=== PATIENT | male | born 1990 | race Caucasian/White ===

== ENCOUNTER 2016-11-09 11:20 | Inpatient (IN) | payer OTHER, MEDICAID ==
[~2016-11-09] VITALS: Ht 180.3 cm; Wt 118.4 kg
[2016-11-09] VITALS (9 sets, daily range): BP systolic 111–145; BP diastolic 57–81; PULSE 92–119; RESP 12–18; O2SAT 92–98
--- NOTE | 2016-11-09 11:34 | ED.REPORT ---
HPI-Rash / Abscess Date of Service November 09, 2016 ED Provider: Alexandro Hutchison MD 26 y/o male with a hx of insulin dependent DM and renal insufficiency presents to the ED due to a painful abscess on the abdomen, onset 10 days ago. The pt was sent to the ED by Dr. Kelly. He states the abscess started out as a small lump, similar to an insect bite and has progressively increased in size. He has not been able to sleep due to the pain from the abscess.The pt is currently taking Bactrim, but his sx have not improved. He denies fever, diaphoresis and chills. He recorded his blood sugar at 165 last. The pt also has a pressure ulcer on his left stump. He states it is not painful. Nursing Notes Stated Complaint: ABSCESS ON STOMACH Chief Complaint: Skin Rash/Abscess Nursing Notes Reviewed: Yes (Bday not reconciled - on Bactrim) Allergies: Uncoded Allergies: FENTENYL (Allergy, Intermediate, Rash, 11/09/16) NKDA (Allergy, Unknown, 04/02/03) Scheduled Amlodipine (Amlodipine) 5 Mg Tablet 5 MG PO DAILY Atorvastatin Calcium (Atorvastatin Calcium) 20 Mg Tablet 20 MG PO DAILY Citalopram (Citalopram) 40 Mg Tablet 40 MG PO DAILY Gabapentin (Gabapentin) 600 Mg Tablet 600 MG PO TID Hydrochlorothiazide (Hydrochlorothiazide) 25 Mg Tablet 25 MG PO DAILY Insulin Glargine (Lantus U100 Insulin Vial) 100 Unit/Ml Vial 35 UNITS SUBQ QAM Insulin Glargine (Lantus U100 Insulin Vial) 100 Unit/Ml Vial 40 UNITS SUBQ HS Insulin Glulisine (Apidra U100 Insulin Vial) 100 Unit/1 Ml Vial 10 UNITS SUBQ TIDAC Lisinopril (Lisinopril) 40 Mg Tablet 40 MG PO DAILY Scheduled PRN Ibuprofen (Ibuprofen) 400 Mg Tablet 400-800 MG PO DAILY PRN PRN For Pain Insulin Glulisine (Apidra U100 Insulin Vial) 100 Unit/1 Ml Vial SUBQ ACHS PRN PRN sliding scale insulin oxyCODONE-Acetaminophen 5-325 mg (oxyCODONE-Acetaminophen 5-325 mg) 1 Each Tablet 1-2 EACH PO Q4H PRN PRN For Pain General Time Seen by MD: 11:32 Chief Complaint Abscess Hx Obtained From: Patient Arrived By: Walk-in Onset Occurred: More than a week ago... (2 weeks) Symptom Duration: Since onset Location: : Abdomen (Abscess on the abdomen) Quality: Painful Severity: Current: Mild Severity: Maximum: Mild Recent Healthcare: Recent doctor visit Similar Sx Previous: No Past Medical History Past Medical History Renal insufficiency (stage 3 as of 10/2016) Diabetes, insulin-dependent Hyperlipidemia Peripheral vascular disease Past Surgical History Bilateral lower extremity amputation secondary to diabetes Smoking History Never Smoker Social History Alcohol Use: Denies alcohol use Ambulatory Status Independent (Bilateral lower extremities amputated. ) Review of Systems Reports: Abscess on the abdomen Constitutional: Denies: Chills, Fever Skin: Denies Diaphoresis Complete sys rev & neg: except as marked. Physical Exam Initial Vital Signs Vital Signs (First) Date Time Temp Pulse Resp B/P Pulse Ox O2 Delivery O2 Flow Rate FiO2 11/09/16 11:31 37.2 105 14 132/74 97 Room Air Initial VS: Reviewed, Unavailable (none on chart, ordered), Vital signs abnormal (heart rate 105) Head / Eyes: Atraumatic, Normocephalic, PERRL Neck: Supple, Non-tender, Full range of motion Respiratory: Breath sounds normal, Clear to auscultation, No respiratory distress Abdomen / GI: Soft, Non-tender, No guarding, No rebound, No distention Neurologic: Alert, Oriented, Nonfocal General/Constitutional: Awake, Alert, Cooperative, Not toxic appearing Concerning smell to the room. Overtly appears in shane sepsis. Skin: Warm, Dry, Intact Cellulitis and cutaneous abscess with some enduration on left upper quadrant of the abdomen. Cardiovascular: Regular rhythm, Heart sounds NL, No gallop, No murmurs, No rubs Heart Rate / Rhythm: Positive: Tachycardia (Mild) Upper Extremity / MS: Atraumatic, Full range of motion, No deformity, Neurologic intact, Vascular intact Lower Extremity / Pelvis / MS: No erythema, Neurologic intact, Vascular intact Bilateral lower extremity amputations. Ulcer on right stump with no clinical sign of infection. Interpretation & Diagnostics Lab Results Interpretation Result Diagram: 11/09/16 1230 11/09/16 1230 Test 11/09/16 12:30 White Blood Count 9.5th/mm3 (3.8-10.1) Red Blood Count 4.12mil/mm3 (4.40-5.80) Hemoglobin 12.0g/dL (13.8-17.2) Hematocrit 35.3% (41.0-50.0) Mean Corpuscular Volume 85.7fL (81-100) Mean Corpuscular Hemoglobin 29.1pg (27.0-35.0) Mean Corpuscular Hemoglobin Concent 34.0% (32.0-37.0) Red Cell Distribution Width 11.8% (12.3-15.4) Platelet Count 328bil/L (150-400) Neutrophils (%) (Auto) 72.4% (40-74) Lymphocytes (%) (Auto) 19.0% (14-46) Monocytes (%) (Auto) 6.5% (4-12) Eosinophils (%) (Auto) 1.7% (0-5) Basophils (%) (Auto) 0.2% (0-3) Sodium Level 132mEq/L (134-144) Potassium Level 6.8mEq/L (3.5-5.2) Chloride Level 99mEq/L (97-108) Carbon Dioxide Level 19mmol/L (18-29) Blood Urea Nitrogen 72mg/dL (6-20) Creatinine 4.54mg/dL (0.76-1.27) Estimat Glomerular Filtration Rate 17mL/min (>59) Glucose Level 212mg/dL (60-99) Lactic Acid Level 0.9mmol/L (0.4-2.0) Calcium Level 8.8mg/dL (8.5-10.1) Total Bilirubin < 0.2mg/dL (0.0-1.2) Aspartate Amino Transf (AST/SGOT) 15U/L (0-50) Alanine Aminotransferase (ALT/SGPT) 17U/L (0-44) Alkaline Phosphatase 97U/L (25-150) Total Protein 7.2g/dL (6.4-8.4) Albumin 2.9g/dL (3.4-5.0) Lab Results Interpretation: CBC normal CMP is significant hyperkalemia, worsening renal insufficiency Blood cultures 2 pending Abscess culture from abdominal wound pending Lactic acid normal ECG Interpretation ECG Interpretation: Normal sinus rhythm. Rate 88 No QRS widening May be marginal T peak waves or may be normal for his age No definitive findings for hyperkalemia Time: 13:36 Interpreted by: ED physician Procedures Incision & Drainage Abscess Time: 13:05 Procedure Performed by: ED physician Consent / Setup / Site Prep: Informed consent provided, Consent from patient , Time-out performed, Hand hygiene observed, Stand sterile technique Location of Abscess: Abdomen Skin Preparation Agent: Betadine Local Anesthesia: Bupivacaine 0.5% (with epi) Procedural Sedation/Analgesia: Analgesia: Dilaudid Incised Abscess with Scalpel: #11 Pus Drained: Medium, Bloody Irrigation: Copious Post-Procedure / Complications: Culture obtained, Dressing applied, No complications, Condition improved, Tolerated procedure well, Patient stable Re-Eval/Medical Decision Med Decision/Clinical Course This is a 26-year-old male type I diabetic who is artery undergone bilateral lower extremity amputations, has chronic renal insufficiency, developed worsening abscess and cellulitis of the abdominal wall that has been developing in recent days the past 2 weeks. Last week he was started on Bactrim, but he was seen today in follow-up at the nephrology clinic and noted to have worsening abscess and cellulitis of the sent into the ED. He denies fevers or chills. On exam he does have a cutaneous abscess with surrounding cellulitis sitting about 10 cm across the upper abdomen. He has a decubitus type blister that does not appear infected on his left stump prosthesis but the patient does not appear toxic or acutely ill. I had received a phone call from Dr. Kelly. I discussed the case with surgeries in [facility] performing incision and drainage. This was done at the bedside with bupivacaine with epinephrine, a large incision was made with a large amount of purulent material obtained. The abscess cavity was irrigated, and the actual overall amount of surrounding erythema already markedly improved following drainage-the original area was outlined with a skin pen prior to procedure performance. I strongly suspect cutaneous MRSA as the likely etiology. As also notable for hyperkalemia-presumably a combination of Bactrim plus renal insufficiency and KASEY inhibitor. The medications be held. Patient has no clear , definitive EKG findings-you can make an ibuprofen for some T-wave peaking, but I suspect that is actually normal for the patient this age. The patient received sodium bicarbonate, albuterol, Kayexalate, insulin, and dextrose per hospital hyperkalemia protocol. Dr. Kelly the marketing and communications officer requested vancomycin be ordered and has a preference for daptomycin. Nam Shah of infectious disease consulted at their request, and agrees-and requested the loading dose of 750 mg of daptomycin for today which is been ordered. Allergies be consulted as well the case discussed. And the patient's be admitted to the hospitalist service for continued management. Wound care consultation will be obtained during the patient's hospitalization, and is been ordered. Source of Hx: Old records Re-Evaluation/Progress : Time of Eval: 13:13 Patient Status: Condition improved Re-Evaluation/Progress Note: Pt rechecked. Discussed lab, imaging results and plan to admit. Pt understands and agrees with the plan for admission. All questions addressed. Consultation #1: Referral / Consult Name: Patrick Alvarado MD Consulted With: Nephrology Call Returned at: 13:35 Supervisor Prepress: Will see patient, Agrees with eval, Agrees with plan Consultation #2: Referral / Consult Name: Noé Sosa MD Consulted With: Hospitalist Call Returned at: 13:38 Supervisor Prepress: Will see patient, Agrees with eval, Agrees with plan, Accepts admit Consultation #3: Referral / Consult Name: Nam Shah MD Call Returned at: 13:42 Supervisor Prepress: Will see patient, Agrees with eval, Agrees with plan Note: Recommended giving 750 mg Daptomycin. Differential Diagnosis: Positive: Abscess, Cellulitis, MRSA, Skin abscess, Negative: Anthrax, cutaneous, Gangrene, Henoch-Schonlein purpura, Herpes zoster, Herpes zoster/simplex, Tinea capitas, corporis, Urticaria, Varicella Counseled Regarding: Diagnosis, Lab results, Need for admission Discharge & Departure Impression: Primary Impression: Abscess Additional Impressions: Hyperkalemia Renal insufficiency Disposition: ADMITTED TO HOSPITAL Discharge Condition All VS Reviewed: Yes Referrals: Nam Kelly DO (PCP) Scribnils Attestation Portions of this note were transcribed by Loc Garnica. I, , personally performed the history, physical exam and medical decision-making;I reviewed and confirmed the accuracy of the information in the transcribed note. Signed by Nydia Hardy. 11/09/16 1350 copies to: Nam Kelly Matthew F MD November 09, 2016 11:34 Loc Garnica November 09, 2016 11:47
[2016-11-09] MEDS ORDERED: Ondansetron 2 mg/mL 2 mL Inj IVPUSH ONE (11:45)
[2016-11-09 12:50] LABS: BASOPHILS % (AUTO) 0.2 % (0-3); EOSINOPHILS % (AUTO) 1.7 % (0-5); MONOCYTES % (AUTO) 6.5 % (4-12); Mean Corpuscular Hemoglobin 29.1 pg (27.0-35.0); Mean Corpuscular Volume 85.7 fL (81-100); NEUTROPHILS % (AUTO) 72.4 % (40-74); Platelet Count 328 bil/L (150-400)
[2016-11-09] MEDS: HYDROmorphone 1 mg/mL Inj IVPUSH PRN ×3 (12:50→14:44)
[2016-11-09] MEDS ORDERED: Sodium Polystyrene Sulfonate 0.25 Gm/mL 500 mL Suspension PO ONE (13:25)
[2016-11-09] MEDS ORDERED: Insulin Human REGular-Omnicell 100 Unit/mL IV ONE (13:25)
[2016-11-09] MEDS ORDERED: Sodium Bicarb (50 mEq) 8.4% 1 mEq/mL 50 mL Syringe IVPUSH ONE (13:25)
[2016-11-09] MEDS ORDERED: Albuterol 0.5% (5mg/mL) 20 mL Inhalation Solution NEB ONE (13:25)
[2016-11-09] MEDS ORDERED: CITA40TA13 PO (13:40)
[2016-11-09] MEDS ORDERED: INSU100V7 SUBQ ×2 (13:40)
[2016-11-09] MEDS ORDERED: GABA600T2 PO (13:40)
[2016-11-09] MEDS ORDERED: INSU100V2 SUBQ ×2 (13:40)
[2016-11-09] MEDS ORDERED: LISI40TA PO (13:40)
[2016-11-09] MEDS ORDERED: 0.9% Sodium Chloride 500 ML IV ONE (13:40)
[2016-11-09] MEDS ORDERED: OXYC1TAB24 PO (13:40)
[2016-11-09] MEDS ORDERED: IBUP400T22 PO (13:40)
[2016-11-09] MEDS ORDERED: ATOR20TA65 PO (13:40)
[2016-11-09] MEDS ORDERED: AMLO5TAB2 PO (13:40)
[2016-11-09] MEDS ORDERED: HYDR25TA4 PO (13:40)
[2016-11-09] MEDS ORDERED: Dextrose 10% 250 ML IV ONE (13:45)
[2016-11-09] MEDS ORDERED: DAPTOmycin Inj 750 MG in 0.9% Sodium Chloride 50 ML IV ONE (13:45)
[2016-11-09] MEDS ORDERED: Polyethylene Glycol (PEG) 17 Gm Powder PO PRN (13:45)
[2016-11-09] MEDS ORDERED: Alum-Mag Hydrox-Simeth 30 mL Suspension PO PRN (13:45)
[2016-11-09] MEDS ORDERED: Ondansetron 2 mg/mL 2 mL Inj IVPUSH PRN (13:45)
--- NOTE | 2016-11-09 15:10 | PCM.HPMED ---
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 He was seeing Dr. Kelly today for a routine follow up and showed him a developing abscess on his abdomen that was worsening over the last few days. He first noticed the abscess about two weeks ago. The patient was seen by his PCP, Yohana Michele, who prescribed him Bactrim as treatment for his cellulitis. The patient has taken 4 days worth of treatment but has noted worsening of his wound. The case was discussed with Dr. Kelly who noted that the wound smelled foul when he examined it. The patient denies any fevers, chills, worsening abdominal pain, nausea, vomiting, diarrhea , palpitations. He also has a wound on his left stump that is not painful. The patient has had wounds there before from his prosthetic. His baseline Cr is around 3 but he is noted to have significant proteinuria with 10.9 g of protein per day. In the ED his vitas were stable. An I and D was performed by Dr. Hutchison with what appeared to be purulent material that appeared serosanguineous in the canister when the patient was examined. He was given one dose of Daptomycin. His potassium was noted to be 6.8 without significant peaked T waves. The patient was treated with 20 mg of albuterol, Insulin, Kayexalate and sodium bicarbonate. Dr. Jones from nephrology and Dr. Shah from infectious disease have been contacted by the ED physician and agree to see the patient. Review of Systems: A comprehensive review of systems was conducted with the patient and found to be negative except as above in the History of Present Illness. Allergies Coded Allergies: fentanyl (Unverified Allergy, Unknown, 11/09/16) Uncoded Allergies: FENTENYL (Allergy, Intermediate, Rash, 11/09/16) Home Medications Stanford Wilcox [id number] 1990 11/09/2016 10:40 AM 06/30 Medications Start Date Medication Directions Stop Date 09/20/2016 amlodipine 5 mg tablet take 1 tablet by oral route every day 10/25/2016 Apidra 100 unit/mL subcutaneous solution inject 10U by subcutaneous route per sliding scale before meals and at bedtime 09/20/2016 atorvastatin 20 mg tablet take 1 tablet by oral route every day blood-glucose meter use to test BS 4 times daily 09/20/2016 citalopram 40 mg tablet take 1 tablet by oral route every day 09/20/2016 gabapentin 600 mg tablet take 1 tablet by oral route 3 times every day 09/20/2016 hydrochlorothiazide 25 mg tablet take 1 tablet by oral route every day 09/21/2016 Lancets,Ultra Thin test 4 times a day 09/20/2016 Lantus 100 unit/mL subcutaneous solution inject 40U by subcutaneous route every evening 09/20/2016 lisinopril 40 mg tablet take 1 tablet by oral route every day multivitamin tablet take 1 tablet by oral route every day with food pantoprazole 40 mg tablet,delayed release take 1 tablet by oral route every day 09/21/2016 Pen Needle 30 gauge x 5/16" use to inject lantus 2 times daily and novolog 3 times daily Percocet 5 mg-325 mg tablet take 1 to 2 tablet by oral route every 4 hours as needed 11/03/2016 sulfamethoxazole 800 mg-trimethoprim 160 mg tablet take 1 tablet by oral route every 12 hours 10/04/2016 True Metrix Glucose Test Strip Use 1 Strip by External route 4 times every day to check blood sugars Tylenol Arthritis Pain 650 mg tablet,extended release take 1 tablet by oral route every 6 hours as needed swallowing whole with water. Do not break, crush , dissolve and/or chew. PMH Type 1 diabetes, followed by Dr. Raghavendra SALGADO (stage 3b as of 10/2016) Hyperlipidemia Peripheral vascular disease Surgical History Bilateral lower extremity amputation secondary to diabetic ulcers and osteomyelitis Family History Father and grandparents have diabetes. Social History Hx Alcohol Use: No Hx Substance Use: No Smoking Status: Never Smoker Exam Vital Signs Vital Sign - Last Date Time Temp Pulse Resp B/P Pulse Ox O2 Delivery O2 Flow Rate FiO2 11/09/16 14:34 99 16 120/57 98 Room Air 11/09/16 11:31 37.2 Exam General: No acute distress, well-developed, well-nourished, appropriately interactive HEENT: Normocephalic, atraumatic. External ears without defect. Pupils equal, round, and reactive to light and accommodation. Anicteric sclerae, moist conjunctivae, and no lid lag. Oropharynx free of erythema and cobble stoning with moist mucosa. Neck: Supple with full range of motion. No jugular venous distension. No bruits. No lymphadenopathy or thyromegaly. Cardiovascular: Regular rhythm, tachycardic with no murmurs, rubs, or gallops appreciated Pulmonary: Clear to auscultation bilaterally with no crackles, wheezes, or rhonchi. Normal respiratory effort with no use of accessory muscles. Abdomen: Bowel tones present. Soft, nontender, nondistended. No hepatosplenomegaly or masses appreciated. About 10 cm wound on left mid abdomen with dressing over it and circumscribed by the ED physician. Extremities: Bilateral BKA. Left stump with about a 5 cm ulcer without drainage and with some granulation tissue over it. Skin: Normal temperature, turgor, and texture. Folliculitis on the abdomen around the noted wound. Neurological: Cranial nerves grossly intact. Normal muscle strength, tone, and bulk. Reduced Psychiatric: Normal mood and affect. Alert and oriented to person, place, and time. 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 He was seeing Dr. Kelly today for a routine follow up and showed him a developing abscess on his abdomen that was worsening over the last few days. Abdominal abscess, appearing superficial, in a poorly controlled diabetic -Patient does not appear toxic, however given his severe diabetes will be aggressive with treatment. -Non contrast CT abdomen/pelvis ordered -Blood cultures pending -Given one dose of Daptomycin. Will add Zosyn for pseudomonas coverage. Gram positive cocci on gram stain suggestive of staph as the likely pathogen. -Infectious disease consulted. Will follow recommendations. Acute kidney injury secondary to presumed acute interstitial nephritis secondary to Bactrim in a patient with chronic kidney disease secondary to diabetes -Patient's baseline Cr around 3. Stop Bactrim -Nephrology consulted, will follow recommendations. -Hold lisinopril Hyperkalemia secondary to CALEB -Patient already given Kayexalate, Insulin, Albuterol and sodium bicarb -BMP Q6H and continue to treat medically Uncontrolled type 1 diabetes -Patient is on 35 units of Lantus in the AM and 40 units in the PM with 10 units of short acting meal time insulin and sliding correctional scale as well -Will decrease Lantus to 30 units BID with 10 units of meal time Lispro and high dose correctional insulin Bilateral BKA with left sided wound -Wound care consultation -Antibiotics as above Depression -Hold citalopram until antibiotic is selected by Dr. Shah. Neuropathy -Hold gabapentin, if patient complains of neuropathic pain, renally adjust dose. Hyperlipidemia -Continue statin Hypertension -Continue HCZT and amlodipine, hold lisinopril CODE STATUS: FULL CODE Patient is admitted under inpatient status with expected length of stay greater than 2 midnights due to severity of presenting symptoms, risk of adverse event, and complexity of treatment plan. VTE Prophylaxis: Sub-Q Heparin (Unfractionated) Resuscitation Status: CPR: Attempt Resuscitation Time spent 60 min Attending Statement Patient seen and examined with housestaff. Agree with all attached documentation. Christianne Hernandez DO November 09, 2016 15:10 Noé Sosa MD November 10, 2016 08:05
[2016-11-09] MEDS ORDERED: MetoCLOpramide 5 mg/mL 2 mL Inj IVPUSH PRN (16:15)
[2016-11-09] MEDS ORDERED: Piperacillin-Tazo 3.375 Gm Inj 3.375 GM in Dextrose 5% Minibag Plus 50 ML IV ONE (17:00)
[2016-11-09] MEDS ORDERED: Glucose 40% Oral Gel 15 Gm Tube PO PRN (17:15)
[2016-11-09] MEDS ORDERED: Dextrose 10% 500 ML IV PRN (17:15)
--- NOTE | 2016-11-09 17:40 | NUR ---
Wound Care Wound orders received patient seen at bedside. 26 yo diabetic male with kiran Below Knee Amputations (BKA), admitted with abdominal abscess. Wound at abdomen is 3 cm x 0.5 cm x 1 cm deep, there is no tunneling or undermining, erythema is receding wound is stable Recommend pack this with the edge of a saline moist 2x2 gauze, cover with dry gauze and tape in place, change daily. Wound at left BKA is 3 cm x 2 cm x 0'3 cm, covered with a fibrin base and periwound is calloused heavily, this was debrided of hyperkeratotic skin and dressed with a mepilex adhesive gauze dressing. wound to recheck on this dressing in am. Abdominal wound is likely due to an infected hair follicle and appears to be adequately drained and stable, should heal quickly. Left BKA ulcer due to poorly fitting prosthesis, will contact [facility] to have them adjust.
[2016-11-09] MEDS: Insulin LISPRO 300 Unit/3 mL Inj SUBQ SCH ×2 (17:52→22:18)
--- NOTE | 2016-11-09 18:00 | NUR ---
Arrived, Hyperglycemia, Multidisciplinary Communication 151 - He arrived and was settled into his room. Was complaining of nausea and then started vomiting. Gave 4mg of IV Zofran which seemed to help some, but didn't last long. 155 - Called Jordan from Wound Care and notified him that the patient had a wound care consult. He said he would either be in today or tomorrow to evaluate him. He came this evening and changed his dressings. Called CT and spoke to Mohit notifying him that he was settled in his room and was able to go to CT now. They came up and to give him contrast. 161 - Spoke to Dr. Sosa as he was having nausea and vomiting again when trying to drink the contrast. He said he would order some Reglan. 162 - The Reglan was ordered. Called Katey from Pharmacy and she said she'd get it acknowledged. 1701 - He was asking for a diet order. Paged Dr. Sosa and a diet was ordered. 1712 - Took his blood glucose which was 397. Spoke to Dr. Hernandez and she said she'd order some insulin. Talked to Pharmacy and they said they'd acknowledge it and send it up as soon as possible. 1751 - The insulin arrived and it was given. 1807 - He left via transporter in his bed to get the CT scan completed. Notified Commercial Center Manager. Addendum: 11/09/16 at 1826 by DANDRE HARRINGTON RN 1816 - She returned from the CT scan to [facility] 2022 and was settled back into the room. Commercial Center Manager notified. Care continues.
--- NOTE | 2016-11-09 19:10 | DRSVH ---
PROCEDURE: CT ABDOMEN AND PELVIS WITHOUT CONTRAST ([id number]) INDICATIONS: abcess, immunocompromised TECHNIQUE: After the administration of oral contrast, 5 mm thick sections acquired from the diaphragms to the sy mphysis. 5 mm coronal and sagittal reformats were performed. For radiation dose reduction, the foll owing was used: automated exposure control, adjustment of mA and/or kV according to patient size. COMPARISON: [facility], CT, SOFT TISSUE NECK W CONTRAST, 01/07/2012, 15:25. FINDINGS: Image quality: Excellent. ABDOMEN: Lung bases: Lung bases are clear. Heart size is normal. Solid organs: Liver and spleen are normal in size. Gallbladder is present. Pancreas is normal in s ize. No adrenal nodules. Both kidneys are normal in size, without hydronephrosis or nephrolithiasis . Peritoneum and bowel: Bowel loops demonstrate normal wall thickness and caliber. No free fluid or a ir. Nodes and vessels: No retroperitoneal or mesenteric adenopathy by size criteria. Aorta and inferior vena cava are normal in size. Miscellaneous: No ventral hernias. PELVIS: Genitourinary: The bladder is distended. Miscellaneous: There is induration, skin thickening, and a tiny locule of subcutaneous gas in the ant erior left paracentral subcutaneous tissues of the anterior abdominal wall (se 2 im 31). Bones: No suspicious bony lesions. No vertebral body compression fractures. IMPRESSION: 1. Inflammation or infection in the subcutaneous tissues of the left paracentral anterior abdominal w all with a tiny locule of gas. No drainable fluid collections. 2. The bladder is significantly distended. Consider correlation with catheterization. Dictated by: Eugenio Lombardi M.D. on 11/09/2016 at 18:57 Approved by: Eugenio Lombardi M.D. on 11/09/2016 at 19:04
[2016-11-09] MEDS ORDERED: Insulin GLARgine 100 Unit/mL Syringe SUBQ SCH (22:00)
--- NOTE | 2016-11-09 22:55 | CONS ---
[address] [address] CONSULTATION REPORT PATIENT: ABDI LUCAS : 1990 MR#: [id number] ADMIT: 11/09/2016 JOB ID: [id number] DATE OF SERVICE: 11/09/2016 REQUESTING PHYSICIAN: Noé Sosa MD REASON FOR CONSULTATION: Management of hyperkalemia and chronic kidney disease. CHIEF COMPLAINT: Abdominal wall abscess. PRESENT ILLNESS: This is a 26-year-old, male with history of insulin-dependent diabetes, chronic kidney disease stage 3, bilateral BKA, depression, and obesity who presented to the emergency department for abdominal wall abscess management. Apparently, the patient noticed a small bump on the abdominal wall roughly two weeks ago. The patient was seen by a provider on November 03, 2016. He was prescribed Bactrim. The patient has been on this antibiotics for six days. He came [facility] this morning and was evaluated by Dr. Kelly. It seems like the skin infection had gotten worse and turned into an abscess. The patient was sent directly to our emergency department for further investigation. I and D bedside was performed by ED physician. Blood culture was sent. Patient denies history of fever or chills. No nausea, vomiting. No diarrhea. Initial BMP showed a sodium of 132, potassium of 6.8, chloride 99, bicarb 19, BUN of 72, creatinine of 4.54. Per record, his serum creatinine had ranged between 2.5-3. Urine protein creatinine ratio was 10,929 mg/kg. The patient reported taking NSAIDs as needed for pain. Over the past week or so, he has not taken any. The patient reported that he was diagnosed with type 2 diabetes when he was 17. However, per our record, the patient was evaluated by Dr. Castle, bench press operator and was diagnosed with type 1 diabetes. The patient had history of very poor compliance to the medication and diet. He has history of diabetic nephropathy and retinopathy. He had history of chronic lower extremity infection and, unfortunately, he underwent left lower knee amputation in December 2013 and, later on, had a right below-knee amputation in January 2015. The patient received medications treating for hyperkalemia including insulin, D50, calcium gluconate, Kayexalate and albuterol in ED. PAST MEDICAL HISTORY: 1. 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 2. Depression. 3. Hypertension. 4. Obesity. 5. Dyslipidemia. PAST SURGICAL HISTORY: Status post bilateral below-knee amputation. FAMILY HISTORY: Positive for diabetes in the family. SOCIAL HISTORY: Denies current use of alcohol, tobacco. He sometimes uses marijuana. ALLERGIES: FENTANYL REVIEW OF SYSTEMS: Constitutional: No fever, no chills. HEENT: No headaches. No blurred vision. Cardiovascular: No chest pain or shortness of breath. Pulmonary: No cough, no hemoptysis. GI: No nausea, vomiting, no diarrhea. : Good urine output. No dysuria. No hematuria. Skin as per HPI. The patient also has multiple excoriations on the upper extremities. Hematology: No active bleeding, no bruises. Neuro: Positive for peripheral neuropathy. Next neuro no neurological deficit. PHYSICAL EXAMINATION: Vitals: Temperature 37.0, pulse 117, respiratory 18, blood pressure 111/62. General appearance: Awake, alert x3. No acute distress. HEENT: No pallor. No jaundice. No JVD. No lymphadenopathy. No thyroid enlargement. Heart: Regular rate, rhythm. Normal S1, S2. No murmurs, rubs, or gallops. Lungs: Clear to auscultation bilaterally. Abdomen was soft, obese, active bowel sounds. Extremities: No edema, cyanosis or clubbing of fingers status post bilateral below-knee amputation. Skin: Multiple excoriations on the upper extremities. Dressing placed on the mid abdomen. ASSESSMENT: 1. Acute kidney injury likely related to medication-induced ATN/AIN including lisinopril and Bactrim. 2. Hyperkalemia secondary to renal insufficiency, medications and possibly renal tubular acidosis, type 4. 3. 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 4. 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 5. Skin soft tissue infection, abdominal abscess, status post incision and drainage. 6. Hypertension with hypertensive nephrosclerosis. 7. Depression. PLAN: 1. I have agreed with the ED physician to start with medical management for hyperkalemia. Will repeat a BMP 4 to 6 hours after the treatment. 2. Hold lisinopril and discontinue Bactrim. 3. If he fails medical management for hyperkalemia, we will consider renal replacement therapy. 4. Continue IV broad-spectrum antibiotics. 5. Perform septic workup, blood culture and wound culture. 6. Renal sonogram, UA, urine PCR, urine eosinophils. Thank you for allowing me to participate in the care of your patient. We will monitor along with you. JESSICAD
[2016-11-10] VITALS (9 sets, daily range): BP systolic 114–149; BP diastolic 65–80; PULSE 84–99; RESP 16–18; O2SAT 95–98
[2016-11-10] MEDS: Heparin 5,000 Unit/mL Inj SUBQ SCH ×3 (01:11→17:23)
[2016-11-10] MEDS: Insulin LISPRO 300 Unit/3 mL Inj SUBQ SCH ×6 (01:35→22:00)
[2016-11-10 03:32] LABS: BASOPHILS % (AUTO) 0.3 % (0-3); EOSINOPHILS % (AUTO) 0.6 % (0-5); Mean Corpuscular Hemoglobin 29.2 pg (27.0-35.0); Mean Corpuscular Volume 87.8 fL (81-100); NEUTROPHILS % (AUTO) 72.5 % (40-74); Platelet Count 278 bil/L (150-400)
[2016-11-10 04:06] LABS: Magnesium 2.6 mg/dL (1.6-2.6); Phosphorus 7.5 mg/dL (2.5-4.9)
--- NOTE | 2016-11-10 06:07 | NUR ---
Blood sugar/Tele Blood sugar @ HS 534 , gave Lantus 30 Units and 10 Units Lispro, recheck @ 0115, 385, called hospitalist was advised to cover according to sliding scale, gave 10 units Lispro, Blood sugar check @ 0500 , 164. Critical results , BUN: 85, Creatinine : 5.7 NS @ TKO, Tele: S-tach - SR
[2016-11-10] MEDS ORDERED: Piperacillin-Tazo 3.375 Gm Inj 3.375 GM in Dextrose 5% Minibag Plus 50 ML IV SCH (08:30)
[2016-11-10] MEDS: oxyCODONE-Acetamin 5-325 mg Tablet PO PRN ×2 (09:58→22:13)
[2016-11-10] MEDS: 0.9% Sodium Chloride 1,000 ML IV SCH ×3 (10:00→23:38)
--- NOTE | 2016-11-10 10:13 | DRSVH ---
PROCEDURE: US RENAL SONOGRAM INDICATIONS: CALEB TECHNIQUE: Real-time scanning was performed of the kidneys and bladder, with image documentation. COMPARISON: [facility], CT, CT ABD PELVIS WO CON, 11/09/2016, 18:14. FINDINGS: Kidneys: Kidneys are normal in size. Right kidney measures 13.4 cm long; left kidney measures 12.3 cm long. Right renal cortical thickness is 1.8 cm; left renal cortical thickness is 1.5 cm. Renal c ortical echotexture is normal. No hydronephrosis or nephrolithiasis. No suspicious solid mass lesio ns. Bladder: Pre-void bladder volume is 882 mL. Post-void residual unable to be assessed as the patient was unable to void. Pre-void images demonstrate no intraluminal masses or stones. On pre-void imag es, bilateral ureteral jets are noted with color Doppler interrogation. (Of note, ureteral jets may not be detectable in up to 25% of cases due to insufficient differences in specific gravity between u reteral and bladder urine). Miscellaneous: No free pelvic fluid. IMPRESSION: 1. Normal appearance the kidneys. 2. Patient was unable to void and chronic bladder outlet obstruction cannot be excluded. Correlate c linically. Dictated by: Heath TONG Interpreted: Gabriela Posey MD on 11/10/2016 at 10:10 Transcribed by: ROGE on 11/10/2016 at 10:12 Approved by: Gabriela Posey M.D. on 11/11/2016 at 9:36
--- NOTE | 2016-11-10 10:14 | NUR ---
Wound Care Patient seen for dressing change and wound care today. Abdominal wound continues to be indurated approx 2.5 cm circumferential from the wound opening. Wound is draining some purulent drainage today and now probes deeply to 3 cms, irrigated and repacked with 1/2 " packing strip, covered with gauze and taped in place, this can be changed daily by nursing. Left BKA wound is cleaned with gauze and saline, redressed with xeroform and adhesive foam dressing, can be changed q 48 hrs by nursing. SO instructed in dressing changes today and willing to do them on discharge. Will monitor abdominal wound may need further opening if induration continues. Will recheck tomorrow.
[2016-11-10 11:10] LABS: APPEARANCE,URINE HAZY (CLEAR,HAZY); COLOR,URINE STRAW (YELLOW)
[2016-11-10 11:11] LABS: OCCULT BLOOD,URINE SMALL (NEGATIVE); UROBILINOGEN,URINE NORMAL (NORMAL)
--- NOTE | 2016-11-10 11:52 | PCM.PNMED ---
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 He was seeing Dr. Kelly today for a routine follow up and showed him a developing abscess on his abdomen that was worsening over the last few days. Now under treatment for CALEB and abdominal abscess. Hospital day #2 Overnight: No acute events. Today: The patient states he feels somewhat improved. His abdominal wound is still hurting but the pain medication is helping. He denies any fevers, chills, diaphoresis, shortness of breath or cough. The remainder of the review of systems is negative except as noted above. Exam Vital Signs Vital Sign - Last Date Time Temp Pulse Resp B/P Pulse Ox O2 Delivery O2 Flow Rate FiO2 11/10/16 11:35 37.2 88 16 124/68 98 Room Air 11/10/16 08:30 1.00 Intake and Output 11/09/16 11/09/16 11/10/16 Cumulative From/Thru 15:00 23:00 07:00 11/09/16 11:31 - 11/10/16 05:58 Intake Total 800 ml 0 ml 1008 ml 1808 ml Output Total 0 ml 725 ml 725 ml Balance 800 ml 0 ml 283 ml 1083 ml Intake Oral 0 ml 700 ml 700 ml IV Total 800 ml 308 ml 1108 ml Output Urine Total 0 ml 725 ml 725 ml # Bowel Movements 0 0 Exam General: No acute distress, well-developed, well-nourished, appropriately interactive HEENT: Normocephalic, atraumatic. External ears without defect. Pupils equal, round, and reactive to light and accommodation. Anicteric sclerae, moist conjunctivae, and no lid lag. Oropharynx free of erythema and cobble stoning with moist mucosa. Neck: Supple with full range of motion. No jugular venous distension. No bruits. No lymphadenopathy or thyromegaly. Cardiovascular: Regular rhythm, regular rate with no murmurs, rubs, or gallops appreciated Pulmonary: Clear to auscultation bilaterally with no crackles, wheezes, or rhonchi. Normal respiratory effort with no use of accessory muscles. Abdomen: Bowel tones present. Soft, nontender, nondistended. No hepatosplenomegaly or masses appreciated. About 10 cm wound on left mid abdomen with dressing over it and circumscribed by the ED physician. Erythema not extending beyond the markings. Extremities: Bilateral BKA. Left stump with about a 5 cm ulcer covered in a clean dry dressing. Skin: Normal temperature, turgor, and texture. Folliculitis on the abdomen around the noted wound. Neurological: Cranial nerves grossly intact. Normal muscle strength, tone, and bulk. Psychiatric: Normal mood and affect. Alert and oriented to person, place, and time. IVs and Medications Medications Reviewed: Medications were reviewed in detail Lab and Diagnostics Result Diagram: 11/10/16 02511/10/16 025 Microbiology STAPH, PROBABLE STAPH AUREUS X-Rays, CTs and MRIs US RENAL SONOGRAM IMPRESSION: 1. Normal appearance the kidneys. 2. Patient was unable to void and chronic bladder outlet obstruction cannot be excluded. Correlate clinically. Dictated by: Heath Giraldo RRA Interpreted: Gabriela Posey MD on 11/10/2016 at 10: 10 CT ABDOMEN AND PELVIS WITHOUT CONTRAST IMPRESSION: 1. Inflammation or infection in the subcutaneous tissues of the left paracentral anterior abdominal wall with a tiny locule of gas. No drainable fluid collections. 2. The bladder is significantly distended. Consider correlation with catheterization. Dictated by: Eugenio Lombardi M.D. 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 He was seeing Dr. Kelly today for a routine follow up and showed him a developing abscess on his abdomen that was worsening over the last few days. Now under treatment for CALEB and abdominal abscess. Hospital day #2 Abdominal abscess, superficial, in a poorly controlled diabetic, present on admission, active. -Patient does not appear toxic, however given his severe diabetes will be aggressive with treatment. -Blood cultures pending -S/P one dose of Daptomycin and Zosyn -Staph, likely s. aureus, is the pathogen. -Infectious disease consulted. Will follow recommendations. Acute kidney injury secondary to presumed acute interstitial nephritis secondary to Bactrim in a patient with chronic kidney disease secondary to diabetes, present on admission, worsening. -Patient's baseline Cr around 3. Stop Bactrim -Nephrology consulted, will follow recommendations. -Hold lisinopril -Continue to monitor Cr Hyperkalemia secondary to CALEB, present on admission, improved. -Patient already given Kayexalate, Insulin, Albuterol and sodium bicarb -Continue to monitor BMP and continue to treat medically Uncontrolled type 1 diabetes, present on admission, active -Patient is on 35 units of Lantus in the AM and 40 units in the PM with 10 units of short acting meal time insulin and sliding correctional scale as well -Will decrease Lantus to 30 units BID with 10 units of meal time Lispro and high dose correctional insulin Bilateral BKA with left sided wound, present on admission -Wound care consultation -Antibiotics as above Depression, present on admission -Hold citalopram until antibiotic is selected by Dr. Shah. Neuropathy, present on admission -Hold gabapentin, if patient complains of neuropathic pain, renally adjust dose. Hyperlipidemia, present on admission -Continue statin Hypertension, present on admission -Continue HCZT and amlodipine, hold lisinopril CODE STATUS: FULL CODE Patient is admitted under inpatient status with expected length of stay greater than 2 midnights due to severity of presenting symptoms, risk of adverse event, and complexity of treatment plan. VTE Prophylaxis: Sub-Q Heparin (Unfractionated) Resuscitation Status: CPR: Attempt Resuscitation Attending Statement Patient seen and examined with house staff. Agree with all attached documentation. Christianne Hernandez DO November 10, 2016 11:40 Noé Sosa MD November 16, 2016 08:04
[2016-11-10] MEDS ORDERED: Albuterol 2.5 mg/3 mL Inhalation Solution NEB ONE (12:10)
--- NOTE | 2016-11-10 12:15 | PCM.PNNEPH ---
Subjective Date of Service November 10, 2016 Subjective Pain on abd wall, but improved. Denies F/C/N/V/CP/SOB. K 5.6, Cr 5.65 Exam Vital Signs Vital Sign - Last Date Time Temp Pulse Resp B/P Pulse Ox O2 Delivery O2 Flow Rate FiO2 11/10/16 11:35 37.2 88 16 124/68 98 Room Air 11/10/16 08:30 1.00 Intake and Output 11/09/16 11/09/16 11/10/16 Cumulative From/Thru 15:00 23:00 07:00 11/09/16 11:31 - 11/10/16 05:58 Intake Total 800 ml 0 ml 1008 ml 1808 ml Output Total 0 ml 725 ml 725 ml Balance 800 ml 0 ml 283 ml 1083 ml Intake Oral 0 ml 700 ml 700 ml IV Total 800 ml 308 ml 1108 ml Output Urine Total 0 ml 725 ml 725 ml # Bowel Movements 0 0 Exam Awake, alert x3. No acute distress. HEENT: No pallor. No jaundice. No JVD. No lymphadenopathy. No thyroid enlargement. Heart: Regular rate, rhythm. Normal S1, S2. No murmurs, rubs, or gallops. Lungs: Clear to auscultation bilaterally. Abdomen was soft, obese, active bowel sounds. Extremities: No edema, cyanosis or clubbing of fingers status post bilateral below-knee amputation. Skin: Multiple excoriations on the upper extremities. abdominal wound, s/p I&D purulent discharge noted, indurated around opening wound ~ 3 cm. Lab and Diagnostics Result Diagram: 11/10/16 0255 11/10/16 0255 Microbiology STAPH, PROBABLE STAPH AUREUS X-Rays, CTs and MRIs US RENAL SONOGRAM IMPRESSION: 1. Normal appearance the kidneys. 2. Patient was unable to void and chronic bladder outlet obstruction cannot be excluded. Correlate clinically. Dictated by: Heath TONG Interpreted: Gabriela Posey MD on 11/10/2016 at 10: 10 CT ABDOMEN AND PELVIS WITHOUT CONTRAST IMPRESSION: 1. Inflammation or infection in the subcutaneous tissues of the left paracentral anterior abdominal wall with a tiny locule of gas. No drainable fluid collections. 2. The bladder is significantly distended. Consider correlation with catheterization. Dictated by: Eugenio Lombardi M.D. on 11/09/2016 at 18:57 Plan Impression 1. Acute kidney injury likely related to medication-induced ATN/AIN including lisinopril and Bactrim. need to rule out neurogenic bladder. 2. Hyperkalemia secondary to renal insufficiency, medications and possibly renal tubular acidosis, type 4. 3. 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 4. 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 5. Skin soft tissue infection, abdominal abscess, status post incision and drainage. 6. Hypertension with hypertensive nephrosclerosis. 7. Depression. Plan: - Add Kayexalate 15 gm PO x1. - Albuterol 10 mg NB x1. - Repeat K in am. - Hold THREAD REELER given no uremic symptoms. - Renal US, UA, urine eos, UPCR. Patrick Alvarado MD November 10, 2016 12:15
--- NOTE | 2016-11-10 13:28 | NUR ---
Social Work: Initial Assessment D: Per EMR review, pt is a 26 year old male admitted for Abscess/Hyperkalemia. [facility]; LTC insurance or VA benefits. PCP is not listed; pt's director of music therapy is Nam Kelly DO. NOK is Rina Wilcox, Mother. Advanced directive information provided to pt at bedside. Readmit score is moderate, 5/8. DATA ENTRY SPECIALIST met with pt and spouse at bedside. Sw role explained and contact information provided. Pt lives on [address] with his father and step-mother. Pt is I with ADLs. Pt has bilateral BKA and uses prosthetics. Pt does not use any other DME. Pt has a history of HH but cannot recall which companies. He has also being to [employer], [facility] [employer] and [facility]. Pt states he has no concerns about discharge home and has been I with his prosthetics during admission. A: Pt who is I at baseline. P: Anticipate pt to discharge home via POV with no anticipated sw needs; DATA ENTRY SPECIALIST to continue to follow. ERICA Che
--- NOTE | 2016-11-10 15:04 | NUR ---
Urine output status Per franchise sales representative order, I instructed patient to try to void so that I could scan his bladder. Andrews cath was to be placed if scan was over 300cc. Pt voided 525cc into urinal. Urine normal in color and characteristic. Bladder scan was performed X3, all with a result of O. Pt stated that he would refuse a andrews .Scrap Drop Crane Operator was cookpaged.
--- NOTE | 2016-11-10 16:04 | CONS ---
[address] [address] CONSULTATION REPORT PATIENT: ABDI LUCAS : 1990 MR#: [id number] ADMIT: 11/09/2016 JOB ID: [id number] DATE OF SERVICE: 11/10/2016 INFECTIOUS DISEASE CONSULTATION: I thank Dr. Hernandez, as well as Dr. Isac Hutchison, for this consultation, as they both contacted me. REASON FOR CONSULTATION: Abdominal wall Staph aureus abscess in a diabetic. HISTORY OF PRESENT ILLNESS: The patient is an unfortunate 26-year-old, type 1 diabetic who has suffered bilateral BKAs over the past three years because of chronic lower extremity infections and ulceration. He has also had one severe staph infection of his left medial thigh which was said to be an MSSA infection, which was treated by I and D and antibiotics last year at another hospital. He now presents with about a 7-10 day history of a slowly increasing tender, erythematous area in his left mid abdomen. CT suggested this was a cellulitic area without much in the way of potential drainage but nonetheless, an incision was made in the emergency department, and there was drainage performed on this apparent abscess with associated cellulitis, and appropriate cultures were taken. I was contacted yesterday by the ED and recommended that daptomycin be given because the patient has a very tenuous renal status and we are trying to avoid precipitating renal failure and also because he is on antidepressants, which would preclude the use of Zyvox. I was especially concerned this could represent MRSA, though, of course, it could be MSSA again as well. The patient tells us that during this illness he has been free of fevers, chills, or sweats. He had not had an unusual cough, shortness of breath, or chest pain. He does say he had a cold recently which left him with some transient sore throat, nasal stuffiness. No problems with his prosthesis, though there has been a small callus that has developed over the left BKA stump. PAST MEDICAL HISTORY: 1. Type 1 diabetes: a. Retinopathy. b. Nephropathy. c. Neuropathy. 2. Status post bilateral BKAs. 3. History of Staph aureus soft tissue infections. 4. Depression. 5. Hyperlipidemia. SOCIAL HISTORY: The patient lives on [facility]. He currently lives alone, is not employed. He does not smoke cigarettes but he does smoke marijuana from time to time. He is not an alcohol consumer, nor an illicit drug user. FAMILY HISTORY: Negative for tuberculosis in first or second-degree relatives. REVIEW OF SYSTEMS: Done. The patient has no headache. He has had some nasal stuffiness and sore throat, which are mild and getting better which he attributes to a viral infection. He has visual issues secondary to his diabetes but they have not changed recently. No dysphagia. No significant cough, chest pain, shortness of breath, nausea, vomiting, diarrhea, or dysuria. He has, as mentioned, some pain along his left anterior abdominal inflammatory mass, which has now undergone I and D. He is able to ambulate fairly well with bilateral prostheses on his BKAs, though he has developed a on the left BKA. No new skin rash except for the one noted on the abdominal wall. Remainder of the review of systems negative. PHYSICAL EXAMINATION: Reveals an afebrile gentleman. Temp 37.1, pulse 99, respiratory rate 16, blood pressure 135/78. He is saturating well on 2 L and in no acute distress. Examination of the head: No trauma. Eyes without conjunctivitis or scleral icterus. Nose is normal. Throat without pharyngitis. No hairy leukoplakia. Neck is supple. No adenopathy. Lungs: Clear. Cardiac tones: Regular rate and rhythm. Abdomen has about a 3 cm transverse incision in the left upper abdomen. This is surrounded by a much larger area about 8 x 5 cm of erythematous, tender induration. Using a Q-tip, the wound excellence consultant, with whom we examined the patient, was able to slip the Q-tip about 4 cm into the wound and obtain some thin bloody drainage without evidence of purulence. The patient does not have a Joseph catheter. He does not have suprapubic fullness. He has bilateral BKAs. His knees appear normal bilaterally. The left BKA stump has been debrided, and there is about a 2 x 1 cm. Shallow ulceration at the site of that debridement. Otherwise, his stumps are well healed. There is no evidence for synovitis anywhere else. No skin rash except that noted on his abdomen. Neurologically, the patient is intact. LABORATORIES: Include white count 10,000 today and was 9000 yesterday. Diff completely normal. Creatinine 5.65. He is not yet on dialysis. CRP 1.9. Procalcitonin 1.17, which may be normal for that level of creatinine. Micro studies include two blood cultures that are negative. The culture from the abdominal wall is already growing Staph aureus, and the Gram stain reflects that. IMAGING: Includes a CT of the abdomen done yesterday prior to his debridement. It shows a subcutaneous left paracentral intra-abdominal wall with a tiny bit of gas. No abscess was seen. IMPRESSION: This is an unfortunate 26-year-old gentleman with type 1 diabetes who has already lost both his lower legs and previously had a serious staphylococcal infection of his left thigh. He now presents with about a 10-day history of a slowly progressive and now quite large abscess with surrounding cellulitis involving his left anterior abdominal wall. This has been incised and debrided in the emergency department, and there is still a significant pocket that can be probed with a Q-tip and surrounding indurated tissue. Note that the patient did receive a short course of Bactrim as an outpatient to treat this which was probably not the best choice and likely contributed to the increasing creatinine and hyperkalemia there was noted when he first arrived. At this point, he is very stable, and we are currently treating him with daptomycin, though he has only received one dose so far, since it will last about 48 hours, given his renal function. I would anticipate an uneventful recovery for this gentleman, and our input will largely be revolving around the appropriate antibiotic and whether it should be IV or p.o. and for how long. It may also be that the patient will need additional debridement going forward. RECOMMENDATIONS: 1. Nasal MRSA swab will be done. 2. Will drop the Zosyn he is receiving, as we already have a positive culture for Staph aureus. 3. Will hold off on re-dosing the daptomycin until tomorrow, as it will last 48 hours, and then we can decide what agent he should receive. Thank you very much for this interesting consult.
[2016-11-10] MEDS ORDERED: Insulin GLARgine 100 Unit/mL Syringe SUBQ ONE (16:35)
[2016-11-10] MEDS: Insulin GLARgine 100 Unit/mL Syringe SUBQ SCH (22:08)
[2016-11-11] VITALS (7 sets, daily range): BP systolic 123–150; BP diastolic 75–95; PULSE 75–89; RESP 16–20; O2SAT 97–98
[2016-11-11] MEDS: Heparin 5,000 Unit/mL Inj SUBQ SCH ×3 (02:14→17:19)
[2016-11-11 03:30] LABS: Phosphorus 6.8 mg/dL (2.5-4.9)
[2016-11-11 06:58] LABS: BASOPHILS % (AUTO) 0.4 % (0-3); EOSINOPHILS % (AUTO) 2.6 % (0-5); MONOCYTES % (AUTO) 7.2 % (4-12); Mean Corpuscular Hemoglobin 29.1 pg (27.0-35.0); Mean Corpuscular Volume 88.5 fL (81-100); NEUTROPHILS % (AUTO) 57.4 % (40-74); Platelet Count 273 bil/L (150-400)
[2016-11-11] MEDS: oxyCODONE-Acetamin 5-325 mg Tablet PO PRN ×2 (08:29→13:32)
[2016-11-11] MEDS: Insulin GLARgine 100 Unit/mL Syringe SUBQ SCH ×2 (08:35→20:17)
[2016-11-11] MEDS: Insulin LISPRO 300 Unit/3 mL Inj SUBQ SCH ×4 (08:37→20:22)
--- NOTE | 2016-11-11 12:16 | PROG NOTE ---
[address] [address] PROGRESS NOTE PATIENT: ABDI LUCAS : 1990 MR#: [id number] ADMIT: 11/09/2016 JOB ID: [id number] DATE: 11/11/2016 INFECTIOUS DISEASE FOLLOWUP NOTE: REASON FOR FOLLOWUP: MSSA abdominal wall abscess in a very poorly controlled diabetic. INTERVAL HISTORY: Overnight, the patient has had no fevers, chills, or sweats. No sore throat. No significant cough. He does have some abdominal pain at the site of the abscess. PHYSICAL EXAMINATION: Reveals an afebrile gentleman. Temp 36.8, pulse 76, respiratory rate 20, blood pressure 123/77, saturating well on room air. In no acute distress. He is alert and oriented. Oral cavity and oropharynx negative. Lungs fairly clear. Abdomen with the open wound as described yesterday with about a 4 cm open wound, which is packed. There is surrounding area of induration and cellulitis about 6 x 5 cm; little different from yesterday's. No other abnormalities noted. The patient is overall nontoxic. LABORATORIES: Include a white count of 8500. Creatinine 5.13, which remains quite elevated compared to his baseline. Procalcitonin was 1.17. Urinalysis without white cells. Culture from the wound grew MSSA, sensitive to all standard agents including clindamycin, if we need that. IMPRESSION: Methicillin-sensitive Staphylococcus aureus abdominal wall abscess in a 26-year-old, poorly controlled diabetic with renal failure, perhaps made worse by a prior course of Bactrim. He seems to be improving and it is fortunate that he has methicillin-sensitive Staphylococcus aureus. RECOMMENDATIONS: 1. Mupirocin to the nares twice a day for 10 days. 2. Switch the patient's antibiotic to Ancef 1 g once a day, given his renal failure. Note that if his renal failure improves substantially, this may have to be increased to twice a day. 3. If the patient is ready for discharge in the next few days, he could go on Keflex 500 mg p.o. b.i.d. If his renal function though improves down to say a creatinine of 3, I would make that Keflex 500 t.i.d. and extend it for 10-14 days regardless of his renal function. 4. Infectious Disease will go ahead and sign off on this case at this time. Please do not hesitate to call us back if there are additional questions or issues.
--- NOTE | 2016-11-11 12:32 | PCM.PNNEPH ---
Subjective Date of Service November 11, 2016 Subjective Reports no F/C/N/V/CP/SOB. Mild tenderness on abd wound. K controlled, 5.1. Cr now trends. Exam Vital Signs Vital Sign - Last Date Time Temp Pulse Resp B/P Pulse Ox O2 Delivery O2 Flow Rate FiO2 11/11/16 08:30 36.7 78 16 150/95 98 Room Air 11/10/16 08:30 1.00 Intake and Output 11/10/16 11/10/16 11/11/16 Cumulative From/Thru 15:00 23:00 07:00 11/09/16 11:31 - 11/11/16 06:23 Intake Total 1875 ml 1614 ml 5297 ml Output Total 525 ml 1700 ml 2950 ml Balance 1350 ml -86 ml 2347 ml Intake Oral 1400 ml 500 ml 2600 ml IV Total 475 ml 1114 ml 2697 ml Output Urine Total 525 ml 1700 ml 2950 ml # Bowel Movements 1 1 Exam Awake, alert x3. No acute distress. HEENT: No pallor. No jaundice. No JVD. No lymphadenopathy. No thyroid enlargement. Heart: Regular rate, rhythm. Normal S1, S2. No murmurs, rubs, or gallops. Lungs: Clear to auscultation bilaterally. Abdomen was soft, obese, active bowel sounds. Extremities: No edema, cyanosis or clubbing of fingers status post bilateral below-knee amputation. Skin: Multiple excoriations on the upper extremities. abdominal wound, s/p I&D purulent discharge noted, indurated around opening wound ~ 3 cm. Lab and Diagnostics Result Diagram: 11/11/16 0252 11/11/16 0252 Microbiology STAPH, PROBABLE STAPH AUREUS X-Rays, CTs and MRIs US RENAL SONOGRAM IMPRESSION: 1. Normal appearance the kidneys. 2. Patient was unable to void and chronic bladder outlet obstruction cannot be excluded. Correlate clinically. Dictated by: Heath TONG Interpreted: Gabriela Posey MD on 11/10/2016 at 10: 10 CT ABDOMEN AND PELVIS WITHOUT CONTRAST IMPRESSION: 1. Inflammation or infection in the subcutaneous tissues of the left paracentral anterior abdominal wall with a tiny locule of gas. No drainable fluid collections. 2. The bladder is significantly distended. Consider correlation with catheterization. Dictated by: Eugenio Lombardi M.D. on 11/09/2016 at 18:57 Plan Impression 1. Acute kidney injury likely related to medication-induced ATN. 2. Hyperkalemia secondary to renal insufficiency, medications and possibly renal tubular acidosis, type 4. 3. 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 4. 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 5. Skin soft tissue infection, abdominal abscess, status post incision and drainage. 6. Hypertension with hypertensive nephrosclerosis. 7. Depression. Plan: Continue NS for another day. No FOREIGN EXCHANGE POSITION CLERK indicated. Renally dose meds. Avoid nephrotoxins. Add NaHCO3, target HCO3 ~ 22. Continue phoslo, will add calcitriol. If kidney function continues to improve, he likely can be d/c'd home within 24- 48 hr. Patrick Alvarado MD November 11, 2016 12:32
[2016-11-11] MEDS: 0.9% Sodium Chloride 1,000 ML IV SCH (14:46)
--- NOTE | 2016-11-11 15:27 | NUR ---
Wound Care Patient seen for dressing changes after showering today. Abdominal wound continues to probe 3.4 cms but erythema and induration are resolving and white count is lowering. Abdominal wound is irrigated with saline and repacked with 1/2" packing strip and covered with gauze and tape, this should be changed by nursing daily over the weekend. Right residual limb wound is cleaned with saline and gauze and redressed with an adhesive foam dressing, this can be changed again on 11/13 by nursing. Wound will recheck on this patient on Tuesday 11/14.
--- NOTE | 2016-11-11 17:58 | PCM.PNMED ---
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 He was seeing Dr. Kelly today for a routine follow up and showed him a developing abscess on his abdomen that was worsening over the last few days. Now under treatment for CALEB and abdominal abscess. Hospital day #3 Overnight: No acute events. Today: Patient states he feels a bit better as compared to yesterday. His abdominal pain is still present but improved. The pain medications he is given are helping control his pain. He denies any fevers, chills, diaphoresis, shortness of breath or cough. The remainder of the review of systems is negative except as noted above. Exam Vital Signs Vital Sign - Last Date Time Temp Pulse Resp B/P Pulse Ox O2 Delivery O2 Flow Rate FiO2 11/11/16 12:28 37.1 85 20 136/80 97 Room Air 11/10/16 08:30 1.00 Intake and Output 11/10/16 11/10/16 11/11/16 Cumulative From/Thru 15:00 23:00 07:00 11/09/16 11:31 - 11/11/16 06:23 Intake Total 1875 ml 1614 ml 5297 ml Output Total 525 ml 1700 ml 2950 ml Balance 1350 ml -86 ml 2347 ml Intake Oral 1400 ml 500 ml 2600 ml IV Total 475 ml 1114 ml 2697 ml Output Urine Total 525 ml 1700 ml 2950 ml # Bowel Movements 1 1 Exam General: No acute distress, well-developed, well-nourished, appropriately interactive HEENT: Normocephalic, atraumatic. External ears without defect. Pupils equal, round, and reactive to light and accommodation. Anicteric sclerae, moist conjunctivae, and no lid lag. Oropharynx free of erythema and cobble stoning with moist mucosa. Neck: Supple with full range of motion. No jugular venous distension. No bruits. No lymphadenopathy or thyromegaly. Cardiovascular: Regular rhythm, regular rate with no murmurs, rubs, or gallops appreciated Pulmonary: Clear to auscultation bilaterally with no crackles, wheezes, or rhonchi. Normal respiratory effort with no use of accessory muscles. Abdomen: Bowel tones present. Soft, nontender, nondistended. No hepatosplenomegaly or masses appreciated. About 10 cm wound on left mid abdomen with dressing over it and circumscribed by the ED physician. Erythema no longer visible. Extremities: Bilateral BKA. Left stump with about a 5 cm ulcer covered in a clean dry dressing. Skin: Normal temperature, turgor, and texture. Folliculitis on the abdomen around the noted wound. Neurological: Cranial nerves grossly intact. Normal muscle strength, tone, and bulk. Psychiatric: Normal mood and affect. Alert and oriented to person, place, and time. IVs and Medications Medications Reviewed: Medications were reviewed in detail Lab and Diagnostics Result Diagram: 11/11/16 0252 11/11/16 0252 Microbiology Pansensitive staph aureus X-Rays, CTs and MRIs US RENAL SONOGRAM IMPRESSION: 1. Normal appearance the kidneys. 2. Patient was unable to void and chronic bladder outlet obstruction cannot be excluded. Correlate clinically. Dictated by: Heath Giraldo RRA Interpreted: Gabriela Posey MD on 11/10/2016 at 10: 10 CT ABDOMEN AND PELVIS WITHOUT CONTRAST IMPRESSION: 1. Inflammation or infection in the subcutaneous tissues of the left paracentral anterior abdominal wall with a tiny locule of gas. No drainable fluid collections. 2. The bladder is significantly distended. Consider correlation with catheterization. Dictated by: Eugenio Lombardi M.D. 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 He was seeing Dr. Kelly today for a routine follow up and showed him a developing abscess on his abdomen that was worsening over the last few days. Now under treatment for CALEB and abdominal abscess. Hospital day #3 Abdominal abscess with S. aureus, superficial, in a poorly controlled diabetic, present on admission, active. -Blood cultures negative for 2 days. -Infectious disease consulted. -Ancef, antibiotic day 3, with plan to be discharged on Keflex, dose depending on renal function, for 10-14 days, per ID. Acute kidney injury secondary to presumed acute interstitial nephritis secondary to Bactrim in a patient with chronic kidney disease secondary to diabetes, present on admission, improving -Patient's baseline Cr around 3. Stop Bactrim -Nephrology consulted, will follow recommendations. -Hold lisinopril -Continue to monitor Cr Hyperkalemia secondary to CALEB, present on admission, improved. -Patient already given Kayexalate, Insulin, Albuterol and sodium bicarb -Continue to monitor BMP and continue to treat medically Uncontrolled type 1 diabetes, present on admission, active -Patient is on 35 units of Lantus in the AM and 40 units in the PM with 10 units of short acting meal time insulin and sliding correctional scale as well -Will give Lantus 35 units BID with 10 units of meal time Lispro and high dose correctional insulin Bilateral BKA with left sided wound, present on admission -Wound care consultation -Antibiotics as above Depression, present on admission -Restart citalopram Neuropathy, present on admission -Hold gabapentin, if patient complains of neuropathic pain, renally adjust dose. Hyperlipidemia, present on admission -Continue statin Hypertension, present on admission -Continue HCZT and amlodipine, hold lisinopril CODE STATUS: FULL CODE Disposition: Anticipate the patient will be in the hospital for 1-2 more days as he is evaluated and treated for the above conditions. VTE Prophylaxis: Sub-Q Heparin (Unfractionated) Resuscitation Status: CPR: Attempt Resuscitation Time spent 25 minutes Attending Statement I have seen and evaluated patient at bedside in addition to directly supervising care provided by resident physician. I agree with above documentation Christianne Hernandez DO November 11, 2016 16:02 Tom Merrill DO November 13, 2016 14:39
--- NOTE | 2016-11-11 19:13 | NUR ---
Blood sugars/urine output Pt CBGs today were 134, 100, and 65. Pt denies any symptoms from the low CBG number. Pt given cranberry juice and ate dinner. Discussed with pt whether he wanted to still take his scheduled nutritional 10 units of Lispro despite the low number, pt said that he did. Lispro administered. Pt asymptomatic. Urine output 2900cc this shift in the urinal.
[2016-11-11] MEDS: Mupirocin 2% 22 Gm Ointment TOPICAL SCH (20:22)
[2016-11-12] VITALS (9 sets, daily range): BP systolic 129–197; BP diastolic 78–112; PULSE 60–83; RESP 16–18; O2SAT 94–98
[2016-11-12] MEDS: Heparin 5,000 Unit/mL Inj SUBQ SCH ×3 (00:30→17:17)
[2016-11-12] MEDS: 0.9% Sodium Chloride 1,000 ML IV SCH (01:19)
--- NOTE | 2016-11-12 01:35 | NUR ---
BLOOD SUGARS Pt had an uneventful night, BS 164, 35 units of Lantus, no sliding scale given. VSS, no pain, no other issues noted @ this time.
[2016-11-12 03:37] LABS: BASOPHILS % (AUTO) 0.3 % (0-3); EOSINOPHILS % (AUTO) 3.1 % (0-5); MONOCYTES % (AUTO) 6.9 % (4-12); Mean Corpuscular Hemoglobin 29.3 pg (27.0-35.0); Mean Corpuscular Volume 87.4 fL (81-100); NEUTROPHILS % (AUTO) 62.7 % (40-74); Platelet Count 326 bil/L (150-400)
[2016-11-12] MEDS: Insulin LISPRO 300 Unit/3 mL Inj SUBQ SCH ×4 (08:00→20:55)
[2016-11-12] MEDS ORDERED: CeFAZolin Inj 1 GM in IV Premix 1 EACH IV SCH (08:30)
--- NOTE | 2016-11-12 08:47 | PCM.PNMED ---
Subjective Date of Service November 12, 2016 Subjective Pt seen and examined at bedside. State he is doing well. No complaints over night. Appetite is good, eating and drinking well. Denies chest pains or palpitation. Pain fro abscess site is tolerable, well controlled, Exam Vital Signs Vital Sign - Last Date Time Temp Pulse Resp B/P Pulse Ox O2 Delivery O2 Flow Rate FiO2 11/12/16 06:03 36.7 74 18 136/88 97 Room Air 11/11/16 20:09 1.00 Intake and Output 11/11/16 11/11/16 11/12/16 Cumulative From/Thru 15:00 23:00 07:00 11/09/16 11:31 - 11/12/16 06:32 Intake Total 3085 ml 1200 ml 9582 ml Output Total 2900 ml 300 ml 6150 ml Balance 185 ml 900 ml 3432 ml Intake Oral 2000 ml 450 ml 5050 ml IV Total 1085 ml 750 ml 4532 ml Output Urine Total 2900 ml 300 ml 6150 ml # Voids 2 2 # Bowel Movements 1 2 General: Alert, Oriented X3, Cooperative, No Acute Distress Mouth: Mucous Membr Moist/[place] Chest & Lungs: Chest Wall Normal Cardiovascular: Regular Rate/Rhythm Abdomen: Non-tender, Non-distended, Other (Obese, with open abscess, S/P I&D filled with packing material on left side of abdomen lateral to umbilicus. small amount of serosanguinous discharge, no evidence of induration or worensing infection around site. ) Neurological: Grossly Neurologically Intact IVs and Medications Medications Reviewed: Medications were reviewed in detail Lab and Diagnostics Result Diagram: 11/12/16 0311 11/12/16 0311 Microbiology Pansensitive staph aureus X-Rays, CTs and MRIs US RENAL SONOGRAM IMPRESSION: 1. Normal appearance the kidneys. 2. Patient was unable to void and chronic bladder outlet obstruction cannot be excluded. Correlate clinically. Dictated by: Heath TONG Interpreted: Gabriela Posey MD on 11/10/2016 at 10: 10 CT ABDOMEN AND PELVIS WITHOUT CONTRAST IMPRESSION: 1. Inflammation or infection in the subcutaneous tissues of the left paracentral anterior abdominal wall with a tiny locule of gas. No drainable fluid collections. 2. The bladder is significantly distended. Consider correlation with catheterization. Dictated by: Eugenio Lombardi M.D. 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 He was seeing Dr. Kelly today for a routine follow up and showed him a developing abscess on his abdomen that was worsening over the last few days. Now under treatment for CALEB and abdominal abscess. Hospital day #4 Abdominal abscess with S. Aureus, superficial, in a poorly controlled diabetic, present on admission, active. -Blood cultures negative for 2 days. -Infectious disease consulted. -Ancef, antibiotic day #4, now increased to BID dosing given improved renal function/. Plan to be discharged on Keflex, dose depending on renal function, for 10-14 days, per ID. Acute kidney injury secondary to presumed acute interstitial nephritis secondary to Bactrim in a patient with chronic kidney disease secondary to diabetes, present on admission, improving -Patient's baseline Cr around 3. Stop Bactrim -Nephrology consulted, will follow recommendations, but pt appear to have return to his baseline with aid of IVFs and medication adjustment. -Continue to monitor Cr off IV hydration, pt encouraged to continue PO intake of fluids - Discuss possible restarting of ACEi with nephrology performance test consultant. Hyperkalemia secondary to CALEB, present on admission, improved. -Patient given Kayexalate, Insulin, Albuterol and sodium bicarb -Continue to monitor BMP and continue to treat medically - Studies noramalized as of this morning. - FU AM level with expectant DC in AM Uncontrolled type 1 diabetes, present on admission, active -Patient is on 35 units of Lantus in the AM and 40 units in the PM with 10 units of short acting meal time insulin and sliding correctional scale as well -Will give Lantus 35 units BID with 10 units of meal time Lispro and high dose correctional insulin Bilateral BKA with left sided wound, present on admission -Wound care consultation -Antibiotics as above Depression, present on admission -Restart citalopram Neuropathy, present on admission -Continue holding gabapentin, if patient complains of neuropathic pain, renally adjust dose. Hyperlipidemia, present on admission -Continue statin Hypertension, present on admission -Continue HCZT and amlodipine, holding lisinopril as noted above. Pain Evaluation: Adequate Pain Control VTE Prophylaxis: Sub-Q Heparin (Unfractionated) Resuscitation Status: CPR: Attempt Resuscitation Time spent 30 minutes Tom Merrill DO November 12, 2016 08:47
[2016-11-12] MEDS: Mupirocin 2% 22 Gm Ointment TOPICAL SCH ×2 (09:08→20:57)
[2016-11-12] MEDS: oxyCODONE-Acetamin 5-325 mg Tablet PO PRN ×2 (09:09→21:01)
[2016-11-12] MEDS: Insulin GLARgine 100 Unit/mL Syringe SUBQ SCH ×2 (09:10→21:05)
--- NOTE | 2016-11-12 10:30 | NUR ---
Dressing changed pt c/o abdomen dressing coming off, dressing changed. Pt tolerated well.
--- NOTE | 2016-11-12 11:40 | NUR ---
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 He first noticed the abscess about two weeks ago. The patient was seen by his PCP, who prescribed him Bactrim as treatment for his cellulitis. The patient had taken 4 days worth of treatment but noted worsening of his wound. The emt/paramedic noted that the wound smelled foul when he examined it. The patient denies any fevers, chills, worsening abdominal pain, nausea, vomiting, diarrhea, palpitations. He also has a wound on his left stump that is not painful. The patient has had wounds there before from his prosthetic. Per [facility], abdominal wound continues to probe 3.4 cms, but erythema and induration are resolving and white count is lowering. Right residual limb wound is cleaned and redressed. PMHx:Poorly controlled type 1 diabetes, stage 3b CKD, hyperlipidemia, PVD, bilateral BKA's secondary to diabetes and osteomyelitis. DIET:Renal consistent carb. PO intake excellent, 75% - 100% trays. LABS: Reviewed. K+ 5.5, Chloride 109, BUN 65, Cr 3.68. MEDICATIONS: Reviewed. Insulin. NUTRITION FOCUSED PHYSICAL ASSESSMENT: GI symptoms / stool: BM x 1 (11/11).Alan: 22. Skin Integrity: See assessment, above. ANTHROPOMETRICS: Current Wt: 116.3 kgBMI: 47.6 kg/m2 adjusted for bilateral BKA. Admit weight: 118.0 kg IBW: 53.64 kg (220% IBW) ESTIMATED NEEDS (BILATERAL BKA'S, CLASS III OBESITY, WOUNDS): Calories: 1609 - 1877 kcal (30 - 35 kcal / kg IBW) Protein: 97 - 107 g protein (1.8 - 2.0 g / kg IBW) Fluid: Approx. 4000 mL (35 mL / kg BW for draining wounds) NUTRITION DIAGNOSIS: 1)Increased nutrient needs related to acute on chronic wound issues, as evidenced by extensive history of diabetes-related wounds with osteomyelitis. INTERVENTION: 1) Will send 2 packets of Reji supplement for wound healing. MONITOR/EVALUATE: Supplement tolerance, PO intake, labs, GI/nutrition status. Follow up per moderate nutrition risk guidelines.
[2016-11-12] MEDS ORDERED: Ergocalciferol (Vit D2) 50,000 Unit Capsule PO SCH (12:00)
--- NOTE | 2016-11-12 13:34 | PCM.PNNEPH ---
Subjective Date of Service November 12, 2016 Subjective Patient reports doing better. Kidney function continues to improve. Potassium slightly elevated this morning 5.5. Pain is controlled. Exam Vital Signs Vital Sign - Last Date Time Temp Pulse Resp B/P Pulse Ox O2 Delivery O2 Flow Rate FiO2 11/12/16 12:00 37.2 60 18 129/78 97 Room Air 11/11/16 20:09 1.00 Intake and Output 11/11/16 11/11/16 11/12/16 Cumulative From/Thru 15:00 23:00 07:00 11/09/16 11:31 - 11/12/16 06:32 Intake Total 3085 ml 1200 ml 9582 ml Output Total 2900 ml 300 ml 6150 ml Balance 185 ml 900 ml 3432 ml Intake Oral 2000 ml 450 ml 5050 ml IV Total 1085 ml 750 ml 4532 ml Output Urine Total 2900 ml 300 ml 6150 ml # Voids 2 2 # Bowel Movements 1 2 Exam Awake, alert x3. No acute distress. HEENT: No pallor. No jaundice. No JVD. No lymphadenopathy. No thyroid enlargement. Heart: Regular rate, rhythm. Normal S1, S2. No murmurs, rubs, or gallops. Lungs: Clear to auscultation bilaterally. Abdomen was soft, obese, active bowel sounds. Extremities: No edema, cyanosis or clubbing of fingers status post bilateral below-knee amputation. Skin: Abd wound dressing placed, s/p I&D, serosanguinous and purulent discharge noted. Lab and Diagnostics Result Diagram: 11/12/16 03111/12/16 031 Microbiology Pansensitive staph aureus X-Rays, CTs and MRIs US RENAL SONOGRAM IMPRESSION: 1. Normal appearance the kidneys. 2. Patient was unable to void and chronic bladder outlet obstruction cannot be excluded. Correlate clinically. Dictated by: Heath TONG Interpreted: Gabriela Posey MD on 11/10/2016 at 10: 10 CT ABDOMEN AND PELVIS WITHOUT CONTRAST IMPRESSION: 1. Inflammation or infection in the subcutaneous tissues of the left paracentral anterior abdominal wall with a tiny locule of gas. No drainable fluid collections. 2. The bladder is significantly distended. Consider correlation with catheterization. Dictated by: Eugenio Lombardi M.D. on 11/09/2016 at 18:57 Plan Impression Plan Impression 1. Acute kidney injury due to ATN-bactrim, lisinopril and ongoing infection. 2. Hyperkalemia secondary to renal insufficiency, medications and possibly renal tubular acidosis, type 4. 3. 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 4. 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 5. Abdominal wall abscess, status post incision and drainage. 6. Hypertension with hypertensive nephrosclerosis. 7. Depression. Plan: Continue sodium bicarbonate. Start ergocalciferol 50,000 units weekly. Continue PhosLo. Stopped calcitriol. We will give 1 dose of Kayexalate 15 g. Recommend low salt and low potassium diet. Repeat BMP in the morning. Patrick Alvarado MD November 12, 2016 13:34
[2016-11-12] MEDS ORDERED: 0.9% Sodium Chloride 100 ML ONE (20:40)
[2016-11-12] MEDS: CeFAZolin Inj 1 GM in IV Premix 1 EACH IV SCH (20:57)
[2016-11-13 02:43] VITALS: BP 126/81; PULSE 60; RESP 16; O2SAT 96
[2016-11-13] MEDS: Heparin 5,000 Unit/mL Inj SUBQ SCH ×2 (02:43→08:23)
--- NOTE | 2016-11-13 04:37 | NUR ---
BGs Pt HS BG was 142 and pt was given 35Units Lantus and no sliding scale was administered. Per lab draw pt's BG was 59. Pt was offered a snack to bring up BG and pt refused. Pt is asymptomatic and when asked said that he felt fine. Pt is still AOx3. Will continue to monitor pt.
[2016-11-13 05:01] VITALS: PULSE 73
--- NOTE | 2016-11-13 06:39 | NUR ---
BGs Rechecked pt's BG and it is now 86.
[2016-11-13 07:06] VITALS: PULSE 60
[2016-11-13 08:20] VITALS: BP 149/87; PULSE 66; RESP 18; O2SAT 98
[2016-11-13] MEDS: CeFAZolin Inj 1 GM in IV Premix 1 EACH IV SCH (08:22)
[2016-11-13] MEDS: Insulin GLARgine 100 Unit/mL Syringe SUBQ SCH (08:22)
[2016-11-13] MEDS: Mupirocin 2% 22 Gm Ointment TOPICAL SCH (08:23)
[2016-11-13] MEDS: Insulin LISPRO 300 Unit/3 mL Inj SUBQ SCH ×2 (08:34→12:10)
--- NOTE | 2016-11-13 12:04 | PCM.DC.MED ---
Discharge Summary Date of Service November 13, 2016 Dates of Hospitalization Date of Hospital Admission November 09, 2016 at 13:49 Date of Discharge: November 13, 2016 Providers: Admitting Physician: Noé Sosa MD Primary Care Physician: Nam Kelly DO Attending Physician: Noé Sosa MD Diagnosis at Time of Discharge Diagnosis at Time of Discharge 1. Abdominal wall abscess 2. Hyperkalemia 3. Renal failure, acute on chronic 4. DM type 1. Consultations Nephrology- Dr Jones ID- Dr Shah Procedures XRay, CTs & MRIs US RENAL SONOGRAM IMPRESSION: 1. Normal appearance the kidneys. 2. Patient was unable to void and chronic bladder outlet obstruction cannot be excluded. Correlate clinically. Dictated by: Heath Giraldo RRA Interpreted: Gabriela Posey MD on 11/10/2016 at 10: 10 CT ABDOMEN AND PELVIS WITHOUT CONTRAST IMPRESSION: 1. Inflammation or infection in the subcutaneous tissues of the left paracentral anterior abdominal wall with a tiny locule of gas. No drainable fluid collections. 2. The bladder is significantly distended. Consider correlation with catheterization. Dictated by: Eugenio Lombardi M.D. 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 He was seeing Dr. Kelly today for a routine follow up and showed him a developing abscess on his abdomen that was worsening over the last few days. He first noticed the abscess about two weeks ago. The patient was seen by his PCP, Yohana Michele, who prescribed him Bactrim as treatment for his cellulitis. The patient has taken 4 days worth of treatment but has noted worsening of his wound. The case was discussed with Dr. Kelly who noted that the wound smelled foul when he examined it. The patient denies any fevers, chills, worsening abdominal pain, nausea, vomiting, diarrhea, palpitations. He also has a wound on his left stump that is not painful. The patient has had wounds there before from his prosthetic. His baseline Cr is around 3 but he is noted to have significant proteinuria with 10.9 g of protein per day. In the ED his vitas were stable. An I and D was performed by Dr. Hutchison with what appeared to be purulent material that appeared serosanguineous in the canister when the patient was examined. He was given one dose of Daptomycin. His potassium was noted to be 6.8 without significant peaked T waves. The patient was treated with 20 mg of albuterol, Insulin, Kayexalate and sodium bicarbonate. Dr. Jones from nephrology and Dr. Shah from infectious disease have been contacted by the ED physician and agree to see the patient. 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 He was seeing Dr. Kelly today for a routine follow up and showed him a developing abscess on his abdomen that was worsening over the last few days. Now under treatment for CALEB and abdominal abscess. Hospital day #4 Abdominal abscess with S. Aureus, superficial, in a poorly controlled diabetic, present on admission, active. -Blood cultures negative for 2 days. -Infectious disease consulted. -Ancef, antibiotic day #5 complete [facility] , discharged on Keflex BID as per ID recommendations to complete 14 day course, 9 additional days was prescribed. Acute kidney injury secondary to presumed acute interstitial nephritis secondary to Bactrim in a patient with chronic kidney disease secondary to diabetes, present on admission, improving -Patient's baseline Cr around 3. Stopped Bactrim which may have exacerbated condition on admission. -Nephrology was consulted, encouraged by improvement, recommended continuation of Sodium Bicarbinate of discharge with follow up in [address] Kelly for further evaluation. -Continued to hold ACEi on discharge, may consider restarting in out patient setting. Hyperkalemia secondary to CALEB, present on admission, improved. -Patient given Kayexalate, Insulin, Albuterol and sodium bicarb on admission, with plan to continue soidum carbinate on discharge, in addition to Lasix to aid in potassium execretion. - Follow up scheduled in 1 week to reassess BMP and consider further management. Uncontrolled type 1 diabetes, present on admission, active -Patient is on 35 units of Lantus in the AM and 40 units in the PM with 10 units of short acting meal time insulin and sliding correctional scale as well - Continued home medications of discharge Hypertension, present on admission -Continued HCZT through hospital stay aon and discharge in addition to amlodipine, still holding lisinopril as noted above. Exam Vital Signs (Last) Date Time Temp Pulse Resp B/P Pulse Ox O2 Delivery O2 Flow Rate FiO2 11/13/16 08:20 36.6 66 18 149/87 98 Room Air 11/11/16 20:09 1.00 Exam General: Alert, Oriented X3, Cooperative, No Acute Distress Mouth: Mucous Membranes Moist/Boiling [place] Chest & Lungs: Chest Wall Normal Cardiovascular: Regular Rate/Rhythm Abdomen: Non-tender, Non-distended, Obese, with open abscess, S/P I&D filled with packing material on left side of abdomen lateral to umbilicus. small amount of sanguineous discharge, no evidence of induration or worsening infection around site. Neurological: Grossly Neurologically Intact Test 11/09/16 12:30 11/10/16 02:55 11/10/16 10:30 11/11/16 02:52 Hemoglobin A1c 8.2% (4.8-5.6) Lactic Acid Level 0.9mmol/L (0.4-2.0) Total Bilirubin < 0.2mg/dL (0.0-1.2) Aspartate Amino Transf (AST/SGOT) 15U/L (0-50) Alanine Aminotransferase (ALT/SGPT) 17U/L (0-44) Alkaline Phosphatase 97U/L (25-150) Total Protein 7.2g/dL (6.4-8.4) Magnesium Level 2.6mg/dL (1.6-2.6) C-Reactive Protein 1.9mg/dL (0.0-0.5) Procalcitonin 1.17ng/mL (0.00-0.08) Urine Color Straw (YELLOW) Urine Appearance Hazy (CLEAR,HAZY) Urine pH 6.0 (5.0-8.0) Urine Specific [place] 1.020 (1.003-1.035) Urine Protein >300mg/dL (NEG,TRACE) Urine Glucose (UA) 500mg/dL (NEGATIVE) Urine Ketones Negativemg/dL (NEGATIVE) Urine Occult Blood Small (NEGATIVE) Urine Nitrite Negative (NEGATIVE) Urine Bilirubin Negative (NEGATIVE) Urine Urobilinogen Normalmg/dL (NORMAL) Urine Leukocyte Esterase Negative (NEGATIVE) Urine RBC 0-2/hpf (0-2) Urine WBC 0-5/hpf (0-5) Urine Epithelial Cells Occasional/hpf (NONE-MOD) Urine Crystals None seen (NONE SEEN) Urine Bacteria None/hpf (NONE-FEW) Urine Hyaline Casts Occasional/lpf (NONE) Urine Granular Casts Occasional (NONE SEEN) Urine Waxy Casts None seen (NONE SEEN) Urine Red Blood Cell Casts Occasional (NONE SEEN) Urine White Blood Cell Casts None seen (NONE SEEN) Urine Mucus Present (None Seen) Urine Trichomonas None seen (NONE SEEN) Urine Yeast None (NONE SEEN) Urinalysis Comment None Urine Culture Reflexed Not indicated Urine Random Creatinine 80mg/dL (24-392) Urine Random Total Protein 390mg/dL (0-15) Phosphorus Level 6.8mg/dL (2.5-4.9) Albumin 2.7g/dL (3.4-5.0) Vitamin D 25-Hydroxy 11.3ng/mL (30.0-100.0) Parathyroid Hormone (Intact) 121pg/mL (15-65) Test 11/12/16 03:11 11/13/16 03:23 White Blood Count 7.4th/mm3 (3.8-10.1) Red Blood Count 3.48mil/mm3 (4.40-5.80) Hemoglobin 10.2g/dL (13.8-17.2) Hematocrit 30.4% (41.0-50.0) Mean Corpuscular Volume 87.4fL (81-100) Mean Corpuscular Hemoglobin 29.3pg (27.0-35.0) Mean Corpuscular Hemoglobin Concent 33.6% (32.0-37.0) Red Cell Distribution Width 11.7% (12.3-15.4) Platelet Count 326bil/L (150-400) Neutrophils (%) (Auto) 62.7% (40-74) Lymphocytes (%) (Auto) 26.9% (14-46) Monocytes (%) (Auto) 6.9% (4-12) Eosinophils (%) (Auto) 3.1% (0-5) Basophils (%) (Auto) 0.3% (0-3) Sodium Level 140mEq/L (134-144) Potassium Level 4.9mEq/L (3.5-5.2) Chloride Level 107mEq/L (97-108) Carbon Dioxide Level 19mmol/L (18-29) Blood Urea Nitrogen 62mg/dL (6-20) Creatinine 3.17mg/dL (0.76-1.27) Estimat Glomerular Filtration Rate 25mL/min (>59) Glucose Level 59mg/dL (60-99) Calcium Level 9.0mg/dL (8.5-10.1) Microbiology Results Pansensitive staph aureus Discharge Medications Discharge Medications Amlodipine (Amlodipine) 5 Mg Tablet 5 MG PO DAILY (Reported) Atorvastatin Calcium (Atorvastatin Calcium) 20 Mg Tablet 20 MG PO DAILY ( Reported) Citalopram (Citalopram) 40 Mg Tablet 40 MG PO DAILY (Reported) Gabapentin (Gabapentin) 600 Mg Tablet 600 MG PO TID (Reported) Hydrochlorothiazide (Hydrochlorothiazide) 25 Mg Tablet 25 MG PO DAILY (Reported ) Insulin Glargine (Lantus U100 Insulin Vial) 100 Unit/Ml Vial 35 UNITS SUBQ QAM ( Reported) Insulin Glargine (Lantus U100 Insulin Vial) 100 Unit/Ml Vial 40 UNITS SUBQ HS ( Reported) Insulin Glulisine (Apidra U100 Insulin Vial) 100 Unit/1 Ml Vial 10 UNITS SUBQ TIDAC (Reported) Lisinopril (Lisinopril) 40 Mg Tablet 40 MG PO DAILY (Reported) As needed Ibuprofen (Ibuprofen) 400 Mg Tablet 400-800 MG PO DAILY PRN PRN For Pain ( Reported) Insulin Glulisine (Apidra U100 Insulin Vial) 100 Unit/1 Ml Vial SUBQ ACHS PRN PRN sliding scale insulin (Reported) oxyCODONE-Acetaminophen 5-325 mg (oxyCODONE-Acetaminophen 5-325 mg) 1 Each Tablet 1-2 EACH PO Q4H PRN PRN For Pain (Reported) Followup Plan Disposition: Discharged home Plan to FU with PCP in 2-3 days following discharge for dressing change and repacking of I&D of abdominal abscess FU in 1 week to Nephrology, Dr Kelly, for further evaluation of renal function and hyperkalemia. Discharge Diet: Diabetic, Renal Diet Discharge Activity: No restrictions Follow-up with PCP in: 1 week Time spent 50 minutes copies to: Yohana Michele PA-C, Benjamin P DO November 13, 2016 12:04
[2016-11-13] MEDS ORDERED: SODI325T PO (12:12)
[2016-11-13] MEDS ORDERED: FURO40TA4 PO (12:12)
[2016-11-13] MEDS ORDERED: Ergocalciferol (Vitamin D2) PO (12:12)
[2016-11-13] MEDS ORDERED: AMLO10TA3 PO (12:12)
--- NOTE | 2016-11-13 12:14 | PCM.DIMED ---
Discharge Instructions Date of Service November 13, 2016 Dates of Hospitalization November 09, 2016 at 13:49 Discharge Diagnosis Discharge Diagnosis 1. Abdominal wall abscess 2. Hyperkalemia 3. Renal failure, acute on chronic 4. DM type 1. Diet Diabetic, Renal Diet Activity No restrictions Patient Instructions Follow up with your primary care provider, Janice Michele in 203 days following discharge for dressing change and repacking of abscess Follow up with you corn cutter, Dr Kelly in 1 week for further evaluation of renal function and potassium level. Follow-up with PCP in: 1 week Tom Merrill DO November 13, 2016 12:14
[2016-11-13] MEDS ORDERED: CEPH-512 PO (12:15)
--- NOTE | 2016-11-13 12:30 | PCM.PNNEPH ---
Subjective Date of Service November 13, 2016 Subjective The was no acute issues overnight. Patient reports no fever, no chills, no chest pain, no shortness of breath. Blood pressure is slightly elevated. Exam Vital Signs Vital Sign - Last Date Time Temp Pulse Resp B/P Pulse Ox O2 Delivery O2 Flow Rate FiO2 11/13/16 08:20 36.6 66 18 149/87 98 Room Air 11/11/16 20:09 1.00 Intake and Output 11/12/16 11/12/16 11/13/16 Cumulative From/Thru 15:00 23:00 07:00 11/09/16 11:31 - 11/13/16 05:21 Intake Total 1289 ml 660 ml 00757 ml Output Total 1925 ml 1275 ml 9350 ml Balance -636 ml -615 ml 2181 ml Intake Oral 1289 ml 580 ml 6919 ml IV Total 80 ml 4612 ml Output Urine Total 1925 ml 1275 ml 9350 ml # Voids 2 # Bowel Movements 1 3 Exam GA: Awake, alert x3. No acute distress. HEENT: No pallor. No jaundice. No JVD. No lymphadenopathy. No thyroid enlargement. Heart: Regular rate, rhythm. Normal S1, S2. No murmurs, rubs, or gallops. Lungs: Clear to auscultation bilaterally. Abdomen was soft, obese, active bowel sounds. Extremities: No edema, cyanosis or clubbing of fingers status post bilateral below-knee amputation. Skin: Abd wound dressing placed, s/p I&D, serosanguinous and purulent discharge noted. Lab and Diagnostics Result Diagram: 11/12/16 0311 11/13/16 0323 Microbiology Pansensitive staph aureus X-Rays, CTs and MRIs US RENAL SONOGRAM IMPRESSION: 1. Normal appearance the kidneys. 2. Patient was unable to void and chronic bladder outlet obstruction cannot be excluded. Correlate clinically. Dictated by: Heath TONG Interpreted: Gabriela Posey MD on 11/10/2016 at 10: 10 CT ABDOMEN AND PELVIS WITHOUT CONTRAST IMPRESSION: 1. Inflammation or infection in the subcutaneous tissues of the left paracentral anterior abdominal wall with a tiny locule of gas. No drainable fluid collections. 2. The bladder is significantly distended. Consider correlation with catheterization. Dictated by: Eugenio Lombardi M.D. on 11/09/2016 at 18:57 Plan Impression 1. Acute kidney injury due to ATN-bactrim, lisinopril and ongoing infection. improving. 2. Hyperkalemia secondary to renal insufficiency, medications and possibly renal tubular acidosis, type 4. 3. 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 4. 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 5. Abdominal wall abscess, status post incision and drainage. 6. Hypertension with hypertensive nephrosclerosis. 7. Depression. Plan: Plan: Continue sodium bicarbonate. Continue ergocalciferol 50,000 units weekly. Continue PhosLo. Increase amlodipine to 10 mg once a day. Will add Lasix 40 mg once a day. Follow-up with Dr. Kelly in 1 week. Recommend low salt and low potassium diet. Patrick Alvarado MD November 13, 2016 12:30
--- NOTE | 2016-11-13 13:33 | NUR ---
Discharge of patient reviewed discharge instructions with patient. Patient verbalized understanding. patient discharged with prescriptions and instructions. IV and Telemetry previously discontinued. Patient left hospital with father to home self care.
--- NOTE | 2016-11-13 15:22 | NUR ---
Social Work: Discharge D: Pt discussed in am rounds. Pt may be ready for discharge today pending input from nephrology. LICENSED EMBALMER met with patient at bedside to confirm discharge plan and assess for unmet needs. pt states that he is ready to go and has no concerns about discharge. Pt was offered advanced directive information which he declined as LICENSED EMBALMER had already provided this. EMR reviewed, no needs identified. A: Pt who is I at baseline. P: Pt to discharge home with his family to transport and no further sw needs. ERICA Che
== END 2016-11-13 13:30 | disposition home or self-care (01) | DRG 383 ==
LOC: SED 11:20 → PCC 13:49
PROVIDERS: ADMIT Hospitalist; ATTEND Hospitalist
PROC: 0H97XZX Drainage of Abdomen Skin, External Approach, Diagnostic (ICD-10-PCS; principal; 2016-11-09)
DX: L02.211 Cutaneous abscess of abdominal wall (principal); N17.0 Acute kidney failure with tubular necrosis; E10.40 Type 1 diabetes mellitus with diabetic neuropathy, unspecified; E10.65 Type 1 diabetes mellitus with hyperglycemia; N18.3 Chronic kidney disease, stage 3 (moderate); E87.5 Hyperkalemia; F32.9 Major depressive disorder, single episode, unspecified; E78.5 Hyperlipidemia, unspecified; B95.61 Methicillin susceptible Staphylococcus aureus infection as the cause of diseases classified elsewhere; Z89.512 Acquired absence of left leg below knee; Z89.511 Acquired absence of right leg below knee; I12.9 Hypertensive chronic kidney disease with stage 1 through stage 4 chronic kidney disease, or unspecified chronic kidney disease; L03.311 Cellulitis of abdominal wall; E10.22 Type 1 diabetes mellitus with diabetic chronic kidney disease; E10.319 Type 1 diabetes mellitus with unspecified diabetic retinopathy without macular edema; N14.1 Nephropathy induced by other drugs, medicaments and biological substances; T37.0X5A Adverse effect of sulfonamides, initial encounter